=== PATIENT | male | born 1940 | race Caucasian/White ===

== ENCOUNTER 2017-05-04 09:39 | Emergency (ER) | payer OTHER ==
[~2017-05-04] VITALS: Ht 177.8 cm; Wt 131.5 kg
--- NOTE | 2017-05-04 10:41 | NUR ---
Pt had ground level fall about 1 week ago, hurt back which is healing, and got abrassion on right knee. about 2 days ago developed pain in right lower leg, extremely painful when walking, and it gets hot. Pt denies CP, SOB, dizziness, n/v, no other complaints, no distress noted.
[2017-05-04] MEDS ORDERED: VANCOMYCIN IV 1,000 MG in IV DEXTROSE 5% 250 ML IV ONE (10:45)
[2017-05-04] MEDS ORDERED: ATOR80TA PO (10:54)
[2017-05-04] MEDS ORDERED: FURO40TA5 PO (10:54)
[2017-05-04] MEDS ORDERED: FISH1CAP16 PO (10:54)
[2017-05-04] MEDS ORDERED: MAGN64TA9 PO (10:54)
[2017-05-04] MEDS ORDERED: ASCO1TAB13 PO (10:54)
[2017-05-04] MEDS ORDERED: POTA10TA15 PO (10:54)
[2017-05-04] MEDS ORDERED: RANI150C4 PO (10:54)
[2017-05-04] MEDS ORDERED: DIGO125T PO (10:54)
[2017-05-04] MEDS ORDERED: ATEN50TA PO (10:54)
[2017-05-04] MEDS ORDERED: VALS80TA2 PO (10:54)
[2017-05-04] MEDS ORDERED: NITR1PAT26 TD (10:54)
[2017-05-04] MEDS ORDERED: VITA1TAB34 PO (10:54)
[2017-05-04] MEDS ORDERED: CHOL100045 PO (10:54)
[2017-05-04] MEDS ORDERED: [UNRECOGNIZED DRUG - OTHER] PO (10:54)
[2017-05-04] MEDS ORDERED: ASPI81TA31 PO (10:54)
[2017-05-04] MEDS ORDERED: CALC-1115 PO (10:54)
[2017-05-04] MEDS ORDERED: APIX5TAB PO (10:57)
[2017-05-04] MEDS ORDERED: VANCOMYCIN IV 200 ML ONE (11:05)
[2017-05-04] MEDS ORDERED: GABA-532 PO (11:16)
[2017-05-04 11:26] LABS: CARBON DIOXIDE 27 mmol/L (21-32); CHLORIDE 104 mmol/L (98-107); CREATININE 0.9 mg/dL (0.6-1.3); GLUCOSE 118 mg/dL (74-106); POTASSIUM 4.5 mmol/L (3.5-5.1); UREA NITROGEN, BLOOD 23 mg/dL (7-18)
[2017-05-04 11:29] LABS: BASOPHILS # (AUTO) 0.1 K/uL (0.0-8.0); EOSINOPHILS # (AUTO) 0.4 K/uL (0.0-0.7); EOSINOPHILS % (AUTO) 3.4 % (0.0-7.0); HEMATOCRIT 41.9 % (40-50); HEMOGLOBIN 13.7 G/DL (14.0-18.0); LYMPHOCYTES # (AUTO) 2.1 K/UL (0.8-4.8); LYMPHOCYTES % (AUTO) 18.6 % (20.5-51.5); MEAN CORPUSCULAR HGB CONC 33 g/dL (32.0-37.0); MEAN CORPUSCULAR VOLUME 91.3 FL (82.0-92.0); MONOCYTES # (AUTO) 1.4 K/UL (0.1-1.30); MONOCYTES % (AUTO) 12.8 % (0.0-11.0); NEUTROPHILS # (AUTO) 7.1 K/UL (1.8-8.9); NEUTROPHILS % (AUTO) 64.2 % (38.5-71.5); PLATELET COUNT (AUTO) 267 K/UL (150-450); RED BLOOD CELL COUNT(AUTO) 4.58 MIL/UL (4.7-6.1); WHITE BLOOD COUNT (AUTO) 11.1 K/UL (4.0-11.2)
[2017-05-04 11:31] LABS: ALANINE AMINOTRANSFERASE 45 U/L (16-63); ALKALINE PHOSPHATASE 56 U/L (50-136); ASPARTATE AMINOTRANSFERASE 24 U/L (15-37); BILIRUBIN,DIRECT 0.2 mg/dL (0.0-0.2); BILIRUBIN,TOTAL 0.8 mg/dL (0.2-1.0); TOTAL PROTEIN, SERUM 7.9 g/dL (6.4-8.2)
--- NOTE | 2017-05-04 16:59 | NUR ---
Called to give report to [facility], transfered to [facility]. Gave report to EMT's.
--- NOTE | 2017-05-04 17:00 | NUR ---
patient was transfered to [place]
== END 2017-05-04 17:30 | disposition short-term general hospital (02) ==
LOC: ER 09:39
DX: S89.91XA Unspecified injury of right lower leg, initial encounter (principal); L03.115 Cellulitis of right lower limb; Z79.82 Long term (current) use of aspirin; Z79.01 Long term (current) use of anticoagulants; I10 Essential (primary) hypertension; I25.10 Atherosclerotic heart disease of native coronary artery without angina pectoris; E78.5 Hyperlipidemia, unspecified; Z95.810 Presence of automatic (implantable) cardiac defibrillator; Z90.49 Acquired absence of other specified parts of digestive tract; Z91.040 Latex allergy status; W18.09XA Striking against other object with subsequent fall, initial encounter; Y93.89 Activity, other specified; Y92.9 Unspecified place or not applicable; Y99.9 Unspecified external cause status
CPT/HCPCS: 36415; 71010; 85025; 85730; 93005; A4663; J3370